=== PATIENT | female | born 1960 | race Caucasian/White ===

== ENCOUNTER 2018-07-30 19:15 | Emergency (ER) | payer OTHER ==
--- NOTE | 2018-07-30 19:40 | UC ---
Ear Complaint HPI - HPI Summary HPI Summary: Patient has had a right earache progressively worsening over the past 2 days. No recent cold symptoms however she has had a flareup of allergies past few days. - History of Current Complaint Stated Complaint: RIGHT EAR COMPLAINT Time Seen by Provider: 07/30/18 19:39 Hx Obtained From: Patient ?: No Onset/Duration: Gradual Onset Severity Initially: Mild Severity Currently: Moderate Aggravating Factors: Nothing Alleviating Factors: Nothing - Allergies/Home Medications Allergies/Adverse Reactions: Allergies Allergy/AdvReac Type Severity Reaction Status Date / Time No Known Allergies Allergy Verified 07/30/18 19:40 Home Medications: Home Medications Amlodipine Besylate/Benazepril [Lotrel 5-20 mg] 1 cap PO DAILY 07/30/18 [ History Confirmed 07/30/18] BuPROPion XL* [Bupropion XL*] 300 mg PO DAILY 07/30/18 [History Confirmed ] Estrogens/Medroxypr 0.625(NF) [Prempro 0.625/2.5(NF)] 1 tab PO DAILY 07/30/18 [ History Confirmed 07/30/18] Hydrochlorothiazide TAB* [Hydrodiuril TAB*] 25 mg PO DAILY 07/30/18 [History Confirmed 07/30/18] Metformin HCl [Glucophage Xr] 750 mg PO DAILY 07/30/18 [History Confirmed ] PMH/Surg Hx/FS Hx/Imm Hx Previously Healthy: Yes Endocrine History: Diabetes - Prediabetes Cardiovascular History: Hypertension Psychological History: Anxiety Review of Systems All Other Systems Reviewed And Are Negative: Yes ENT: Positive: Ear Ache - Right earache., Other - She has had a flare up of her allergies recently. Is Patient Immunocompromised?: No Physical Exam Triage Information Reviewed: Yes Appearance: Well-Appearing, No Pain Distress, Well-Nourished Vital Signs Reviewed: Yes Eyes: Positive: Conjunctiva Clear ENT: Positive: Pharynx normal, TM red - Right tympanic membrane with erythema and moderate landmarks distorted light reflex, left tympanic membrane is injected., Uvula midline Neck: Positive: Supple, Nontender, No Lymphadenopathy Respiratory: Positive: Lungs clear, Normal breath sounds, No respiratory distress, No accessory muscle use Cardiovascular: Positive: RRR, No Murmur, Pulses Normal, Brisk Capillary Refill Musculoskeletal Exam: Normal Neurological Exam: Normal Psychological Exam: Normal Skin Exam: Normal Ear Complaint Course/Dx - Course Course Of Treatment: Patient is comfortable here. She has a right otitis media possibly an early left otitis media. I'm giving her amoxicillin 875 mg by mouth twice a day 10 days and she is follow-up with her primary care provider if no improvement in 3 or 4 days. - Differential Dx/Diagnosis Provider Diagnosis: Right otitis media Discharge - Sign-Out/Discharge Documenting (check all that apply): Patient Departure All imaging exams completed and their final reports reviewed: No Studies - Discharge Plan Condition: Fair Disposition: HOME Prescriptions: Amoxicillin PO (*) [Amoxicillin 875 MG (*)] 875 mg PO BID 10 Days #20 tab Patient Education Materials: Ear Infection (ED) Referrals: Gato Figueroa MD [Primary Care Provider] - Additional Instructions: May alternate Tylenol every 4 hours and Motrin every 8 hours for pain. Follow- up with your primary care provider if no improvement in 3 or 4 days. - Billing Disposition and Condition Condition: FAIR Disposition: Home
== END 2018-07-30 20:03 | disposition home or self-care (01) ==
LOC: EDBD → UCCORT 19:15
DX: H66.91 Otitis media, unspecified, right ear (principal); I10 Essential (primary) hypertension; E11.9 Type 2 diabetes mellitus without complications; Z79.84 Long term (current) use of oral hypoglycemic drugs; Z79.899 Other long term (current) drug therapy
CPT/HCPCS: 99202; G0463